=== PATIENT | male | born 1970 | race Caucasian/White ===

== ENCOUNTER 2019-06-28 07:49 | Outpatient (RCR) | payer OTHER, SELFPAY ==
[2019-06-28 08:05] VITALS: BP_SYST 50
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
[2019-07-22 08:00] VITALS: BP_SYST 120
--- NOTE | 2019-07-22 09:15 | PTOPEVAL ---
Thank you for referring this patient to [facility]. Please review, sign, date and return this plan of care [facility]. I agree with and certify that the following plan of care is medically necessary. Referring Physician Date Admitting Provider: Attending Provider: PHYSICIAN NOT ON STAFF Referring Provider: *PT Outpatient Evaluation Start: 06/28/19 08:08 Freq: Status: Active Protocol: Document 07/22/19 08:00 [facility] (Rec: 07/22/19 09:10 [facility] [email or web address]) Therapy Assessment Status Assessment Status Assessment Status Re-evaluation Outpatient Past Medical History Musculoskeletal History Hx Orthopedic Surgery Yes: R LE IM justine, L LE IM justine. Evaluation Information Problem Diagnosis L RTC repair Subjective Information patient reports he feels good Query Text:As Reported By Patient/ this date. he reports he has Family improved mobiltiy of the L shoulder and has a follow up to see his MD in a few weeks. he reports he is anxious to be getting back to work. Pain Assessment Timing of Pain Assessment Timing of Pain Assessment Assessment Pain Scale Pain Scale Used Numeric (1 - 10) Self Report Pain Assessment Left Shoulder(s) Reported Pain Level 1 Current Pain Intensity 1 Lowest Pain Intensity 0 Greatest Pain Intensity 2 Pain Score Pain Score 1: Self Report Additional Pain Score Comments anterior deltoid soreness Upper Extremity Range of Motion Scapular/ Shoulder Range of Motion Left Shoulder Flexion - Active 135 Shoulder Flexion - Passive 140 Shoulder Abduction - Active 90 Shoulder Abduction - Passive 120 Shoulder Medial Rotation - Active 50 Shoulder Lateral Rotation - Passive 25 Shoulder Lateral Rotation - Active patient is able to reach the Query Text:Reach Behind the Head occiput with the L hand, but considerable compensation is noted from shoulder flexion, head tilt, and cervical flexion. PT Clinical Summary Clinical Summary Protocol: PTEVCODE Clinical Summary mr. gonzalez tolerates therapy well this date. he has completed 12 skilled PT visits as of this date. he has improved mobility of the L shoulder, but is still under pre-cautions for no strengthening at this time. he would do well to continue
--- NOTE | 2019-08-22 09:37 | PTOPEVAL ---
Thank you for referring this patient to [facility]. Please review, sign, date and return this plan of care [facility]. I agree with and certify that the following plan of care is medically necessary. Referring Physician Date Admitting Provider: Attending Provider: PHYSICIAN NOT ON STAFF Referring Provider: *PT Outpatient Evaluation Start: 06/28/19 08:08 Freq: Status: Active Protocol: Document 08/22/19 08:00 [facility] (Rec: 08/22/19 09:37 [facility] [email or web address]) Therapy Assessment Status Assessment Status Assessment Status Re-evaluation Outpatient Past Medical History Musculoskeletal History Hx Orthopedic Surgery Yes: R LE IM justine, L LE IM justine. Evaluation Information Problem Diagnosis L RTC repair Subjective Information patient reports he feels good Query Text:As Reported By Patient/ this date. he reports he Family does feel tight in the L shoulder this date. he reports he has no pain, but is still weak and tight. he reports he would not be able to return to full work performance at this time. Pain Assessment Timing of Pain Assessment Timing of Pain Assessment Assessment Self Report Self Report Pain Level 0 Pain Score Pain Score 0: Self Report Upper Extremity Range of Motion Scapular/ Shoulder Range of Motion Left Shoulder Flexion - Active 135 Shoulder Flexion - Passive 145 Shoulder Lateral Rotation - Active 35 Shoulder Lateral Rotation - Passive 45 Upper Extremity Muscle Strength Testing Scapular/Shoulder Left Shoulder Flexion Strength 4- Good - Shoulder Abduction Strength 4- Good - Shoulder Medial Rotation Strength 4+ Good + Shoulder Lateral Rotation Strength 4- Good - Palpation Assessment Palpation Palpation L shoulder elevation compensation with overhead reach and lifting of light weights overhead. trunk extension compensation with arom and prom L shoudler flexion to end rom. PT Clinical Summary Clinical Summary Protocol: PTEVCODE Clinical Summary mr. gonzalez presents this date with improve rom, strength, and mobility/functional use of the L shoulder/UE. however, he still presents with weakness, decreased rom, and inability to return to his prior level functional mian
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
== END 2019-09-28 23:59 | disposition home or self-care (01) ==
LOC: CHSPT 07:49
DX: S46.012S Strain of muscle(s) and tendon(s) of the rotator cuff of left shoulder, sequela (principal)
CPT/HCPCS: 97014; 97110; 97161; 97530; G0283

== ENCOUNTER 2019-10-05 07:55 | Outpatient (RCR) | payer OTHER, SELFPAY | END 2019-11-02 17:00 | disposition home or self-care (01) | LOC: CHSPT 07:55 | DX: S46.012S Strain of muscle(s) and tendon(s) of the rotator cuff of left shoulder, sequela (principal) | CPT/HCPCS: 97110; 97530 ==

== ENCOUNTER 2020-07-24 12:12 | Outpatient (CLI) | payer OTHER, SELFPAY ==
[2020-07-24 12:43] LABS: SARS-CoV-2 Ag Negative (Negative)
== END 2020-07-24 12:13 | disposition home or self-care (01) ==
LOC: CHSLAB 12:15
PROVIDERS: PCP Internal Medicine; Visit Provider Internal Medicine
DX: Z20.822 Contact with and (suspected) exposure to COVID-19 (principal)
CPT/HCPCS: 87426; C9803

== ENCOUNTER 2021-06-05 16:06 | Outpatient (CLI) | payer OTHER, SELFPAY ==
[2021-06-05 17:14] LABS: SARS-CoV-2 RNA PCR Positive (Negative)
== END 2021-06-05 16:07 | disposition home or self-care (01) ==
LOC: CHSLAB 16:09
PROVIDERS: PCP Internal Medicine; Visit Provider Internal Medicine
DX: U07.1 COVID-19 (principal)
CPT/HCPCS: C9803; U0003; U0005

== ENCOUNTER 2021-12-18 08:37 | Outpatient (CLI) | payer OTHER, SELFPAY ==
[2021-12-18 09:00] LABS: Basophils Absolute Auto 0.01 K/mm3 (0.00-0.10); Basophils Percent Auto 0.2 % (0.0-1.0); Eosinophils Absolute Auto 0.09 K/mm3 (0.02-0.50); Eosinophils Percent Auto 1.5 % (1.0-6.0); Hematocrit 46.4 % (40.0-54.0); Hemoglobin 16.6 g/dL (14.0-18.0); Immature Granulocyte Absolute 0.01 K/mm3 (0.00-0.00); Immature Granulocyte Percent A 0.2 % (0.0-0.0); Lymphocytes Absolute Auto 1.88 K/mm3 (1.10-4.50); Lymphocytes Percent Auto 32.2 % (18.0-42.0); Mean Corpuscular HGB Conc 35.8 g/dL (32.0-36.0); Mean Corpuscular Hemoglobin 30.2 pg (27.0-31.0); Mean Corpuscular Volume 84.4 fL (78.0-102.0); Mean Platelet Volume 10.6 fl (8.7-11.0); Monocytes Percent Auto 10.3 % (2.0-11.0); Neutrophils Absolute Auto 3.2 K/mm3 (1.7-7.2); Neutrophils Percent Auto 55.6 % (50.0-70.0); Platelet Count Result 176 K/mm3 (150-420); Red Cell Distribution Width 12.9 % (11.6-14.4); White Blood Count 5.8 K/mm3 (4.8-10.8)
[2021-12-18 09:49] LABS: Cholesterol 245 mg/dL (0-200); HDL Direct 52 mg/dL (40-60); LDL Cholesterol Calculated 178 mg/dL (<130); Prostate Specific Antigen 2.1 ng/mL (< OR = 4.0); Thyroid Stimulating Hormone 0.56 uIU/mL (0.36-3.74); Triglycerides 77 mg/dL (0-150)
[2021-12-22 14:16] LABS: LH 2.2 mIU/mL (1.5-9.3); Sex Hormone Binding Globulin 34 nmol/L (10-50); Testosterone Free 50.9 pg/mL (35.0-155.0); Testosterone Total 312 ng/dL (250-1100)
[2021-12-25 20:16] LABS: Estradiol, Ultrasensitive 17 pg/mL (< OR = 29)
== END 2021-12-18 08:38 | disposition home or self-care (01) ==
LOC: CHSLAB 08:40
PROVIDERS: PCP Internal Medicine; Visit Provider Family Medicine
DX: E29.1 Testicular hypofunction (principal); R53.83 Other fatigue; R68.82 Decreased libido
CPT/HCPCS: 36415; 80061; 82670; 83002; 84153; 84270; 84402; 84403; 84443; 85025; G0103

== ENCOUNTER 2022-06-10 08:18 | Outpatient (CLI) | payer OTHER, SELFPAY ==
[2022-06-10 09:31] LABS: Prostate Specific Antigen 1.8 ng/mL (< OR = 4.0)
[2022-06-14 13:10] LABS: Testosterone Free 45.7 pg/mL (35.0-155.0); Testosterone Total 322 ng/dL (250-1100)
[2022-06-18 22:32] LABS: Estradiol, Ultrasensitive 19 pg/mL (< OR = 29)
== END 2022-06-10 08:19 | disposition home or self-care (01) ==
LOC: CHSLAB 08:21
PROVIDERS: PCP Internal Medicine; Visit Provider Family Medicine
DX: E29.1 Testicular hypofunction (principal); N50.89 Other specified disorders of the male genital organs; Z12.5 Encounter for screening for malignant neoplasm of prostate
CPT/HCPCS: 36415; 82670; 84153; 84402; 84403; G0103

== ENCOUNTER 2023-01-29 07:04 | Outpatient (CLI) | payer OTHER, SELFPAY ==
[2023-01-29 07:21] LABS: Basophils Absolute Auto 0.02 K/mm3 (0.00-0.10); Basophils Percent Auto 0.3 % (0.0-1.0); Eosinophils Absolute Auto 0.07 K/mm3 (0.02-0.50); Eosinophils Percent Auto 1.2 % (1.0-6.0); Hematocrit 44.4 % (40.0-54.0); Hemoglobin 15.6 g/dL (14.0-18.0); Immature Granulocyte Absolute 0.02 K/mm3 (0.00-0.00); Immature Granulocyte Percent A 0.3 % (0.0-0.0); Lymphocytes Absolute Auto 1.74 K/mm3 (1.10-4.50); Lymphocytes Percent Auto 29.3 % (18.0-42.0); Mean Corpuscular HGB Conc 35.1 g/dL (32.0-36.0); Mean Corpuscular Hemoglobin 31.1 pg (27.0-31.0); Mean Corpuscular Volume 88.4 fL (78.0-102.0); Mean Platelet Volume 9.3 fl (8.7-11.0); Monocytes Absolute Auto 0.57 K/mm3 (0.10-0.90); Monocytes Percent Auto 9.6 % (2.0-11.0); Neutrophils Absolute Auto 3.5 K/mm3 (1.7-7.2); Neutrophils Percent Auto 59.3 % (50.0-70.0); Platelet Count Result 246 K/mm3 (150-420); Red Blood Count 5.02 M/mm3 (4.70-6.10); Red Cell Distribution Width 14.4 % (11.6-14.4); White Blood Count 5.9 K/mm3 (4.8-10.8)
[2023-01-29 08:15] LABS: Prostate Specific Antigen 3.6 ng/mL (< OR = 4.0)
== END 2023-01-29 07:05 | disposition home or self-care (01) ==
LOC: CHSLAB 07:06
PROVIDERS: PCP Internal Medicine; Visit Provider Family Medicine
DX: E29.1 Testicular hypofunction (principal); R53.83 Other fatigue; R68.82 Decreased libido
CPT/HCPCS: 36415; 84153; 85025

== ENCOUNTER 2023-11-25 09:26 | Outpatient (CLI) | payer OTHER, SELFPAY ==
--- NOTE | ~2023-11-25 | XR_ITS ---
AP and lateral views of the right hip Clinical history: Pain Findings: No acute fracture or dislocation is seen. Patient is status post ORIF of a now healed fract ure deformity mid right femoral shaft. Femoral intramedullary justine in place. Right hip joint space is intact. Soft tissues are unremarkable. Impression: No acute abnormality. Prior ORIF for now healed fracture deformity of the mid femoral shaft. Reviewed, dictated and finalized at location . Impression: No acute abnormality. Prior ORIF for now healed fracture deformity of the mid femoral shaft.
== END 2023-11-25 09:27 | disposition home or self-care (01) ==
PROVIDERS: PCP Internal Medicine; Visit Provider Internal Medicine
DX: M25.551 Pain in right hip (principal); Z87.81 Personal history of (healed) traumatic fracture
CPT/HCPCS: 73502

== ENCOUNTER 2023-12-01 07:20 | Outpatient (CLI) | payer OTHER, SELFPAY ==
--- NOTE | ~2023-12-01 | US_ITS ---
COMPLETE ABDOMINAL ULTRASOUND Ordering provider: Rosendo Kerns MD History: . Abnormal LFTs . Comparison: None. FINDINGS: LIVER: Normal size and echotexture. No focal hepatic lesions or perihepatic fluid collections are sherwin ntified. The liver measures 17.2 cm. GALLBLADDER: Unremarkable. No evidence for stones, sludge, gallbladder wall thickening or pericholecy stic fluid collections. A negative sonographic Crane's sign was noted. Normal portable vein flow. BILIARY DUCTS: No evidence for intra or extrahepatic biliary dilation. Common bile duct measures 5.2 mm in diameter which is within normal limits. PANCREAS: The tail is not demonstrate otherwise, Normal echotexture and size. SPLEEN: Normal size, echotexture and contour and measures 11.8 cm in length. KIDNEYS: Right measures 12.4x 5.2x 5.2 cm in length and the left 11.4x 4.5x 6.7 cm in length. There i s no evidence for hydronephrosis, solid renal mass, renal calculi or perinephric fluid collections. N o renal cysts. UPPER ABDOMINAL AORTA: Normal in caliber. Measures 2.6 cm. IVC: Patent. FREE FLUID: None. IMPRESSION: 1. Unremarkalbe complete ultrasound of the abdomen. Reviewed, dictated and finalized at location A.
== END 2023-12-01 07:21 | disposition home or self-care (01) ==
LOC: CHSIMG 07:22
PROVIDERS: PCP Internal Medicine; Visit Provider Internal Medicine
DX: R94.5 Abnormal results of liver function studies (principal)
CPT/HCPCS: 76700